=== PATIENT | female | born 1960 | race Caucasian/White ===

== ENCOUNTER 2020-04-03 02:27 | Emergency (ER) | payer MEDICARE, OTHER ==
[~2020-04-03] VITALS: Ht 157.5 cm; Wt 53.5 kg
[~2020-04-03 02:27] MED LIST: Bactrim Ds Tab1 EACH PO; CYCL10 PO; IBUP800 PO; OXYACE5T PO
[2020-04-03] MEDS ORDERED: Norco 5-325 Ta1 EACH PO (03:16)
== END 2020-04-03 03:59 | disposition home or self-care (01) ==
LOC: ER 02:27
DX: S52.501A Unspecified fracture of the lower end of right radius, initial encounter for closed fracture (principal); F17.210 Nicotine dependence, cigarettes, uncomplicated; Z79.899 Other long term (current) drug therapy; W18.30XA Fall on same level, unspecified, initial encounter
CPT/HCPCS: 29125; 73110; 99283-25; A9270

== ENCOUNTER → 2021-07-21 | Outpatient (CLI) | payer OTHER ==
[~2021-07-21] MED LIST changes: +Norco 5-325 Ta1 EACH PO
[2021-07-22 09:20] LABS: C DIFFICILE DNA NEGATIVE (Negative)
== END | disposition home or self-care (01) ==
LOC: LAB SHORT 14:38 → LAB 14:38
PROVIDERS: Internal Medicine
DX: R19.7 Diarrhea, unspecified (principal)
CPT/HCPCS: 87015; 87045; 87046; 87205; 87493; 87899

== ENCOUNTER 2024-09-17 09:56 | Day surgery (SDC) | payer OTHER ==
[~2024-09-17] VITALS: Ht 157.5 cm; Wt 56.2 kg
[~2024-09-17 09:56] MED LIST changes: +METO25ER
[2024-09-17 12:14] VITALS: BP 99/60
== END 2024-09-17 12:13 | disposition home or self-care (01) ==
LOC: ORSCSDS 09:56
PROVIDERS: Specialist
PROC: 0DJD8ZZ Inspection of Lower Intestinal Tract, Via Natural or Artificial Opening Endoscopic (ICD-10-PCS; principal; 2024-09-17 12:00)
DX: Z12.11 Encounter for screening for malignant neoplasm of colon (principal); Z86.0100 Personal history of colon polyps, unspecified; I10 Essential (primary) hypertension; K57.30 Diverticulosis of large intestine without perforation or abscess without bleeding; K64.8 Other hemorrhoids; Z79.899 Other long term (current) drug therapy
CPT/HCPCS: J2704; J7120